=== PATIENT | male | born 1960 ===

== ENCOUNTER 2016-09-07 14:21 | Emergency (ER) | payer OTHER ==
[2016-09-07 14:34] VITALS: BP 154/88; PULSE 64; RESP 19; TEMP 98.6; O2SAT 100; BMI 22.6
[2016-09-07] MEDS ORDERED: TDAP Vaccine 0.5 mL Syr IM ONE (14:43)
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
--- NOTE | 2016-09-07 17:25 | RAD ---
PROCEDURE: Left Knee Radiographs. HISTORY: Pain. COMPARISON: None. FINDINGS: BONES: Normal. No fracture. JOINTS: Normal. No osteoarthritis. JOINT EFFUSION: None. OTHER FINDINGS: None. IMPRESSION: Normal radiographs of the left knee.
== END 2016-09-07 15:15 | disposition home or self-care (01) ==
LOC: MERGE 14:21 → ED 14:21
DX: S80.02XA Contusion of left knee, initial encounter (principal); V49.49XA Driver injured in collision with other motor vehicles in traffic accident, initial encounter; Y92.410 Unspecified street and highway as the place of occurrence of the external cause; Z23 Encounter for immunization